=== PATIENT | female | born 1960 | race Caucasian/White ===

== ENCOUNTER 2022-08-20 06:00 | Day surgery (SDC) | payer OTHER ==
[2022-08-11 14:15] VITALS: BP 128/80
[~2022-08-20] VITALS: Ht 175.3 cm; Wt 64.5 kg
--- NOTE | ~2022-08-20 | OR ---
[facility] [address] [place], [place] [address] Draft DATE OF OPERATION: 08/20/2022 SURGEON: Deana Bundy MD PREOPERATIVE DIAGNOSIS: CIN2, positive ECC. POSTOPERATIVE DIAGNOSIS: CIN2, positive ECC. PROCEDURE: Cone biopsy with ECC. ANESTHESIA: General LMA. ESTIMATED BLOOD LOSS: 15 mL. DRAINS: None. 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 Her last one was again abnormal. Colposcopy was done which revealed CIN2 as well as positive ECC. Because of this, cone biopsy was indicated. At the time of surgery, exam under anesthesia was normal. She had a small nonstaining area on the posterior aspect of the cervix. DESCRIPTION OF PROCEDURE: The patient was prepped and draped in the dorsal lithotomy position. An open-sided speculum was placed and the anterior lip of the cervix was visualized and grasped with a single-tooth tenaculum. sutures of 0 chromic were placed at 3 and 9 o'clock using 0 chromic. The cervix was then stained with Lugol's solution. Using the knife, the cervix was circumscribed with removal of the cone with a depth of approximately 2 cm. The base of the cone was treated with cautery as well as the suction. There was continued bleeding posteriorly and a suture of 0 chromic was placed cervix posteriorly using 0 chromic with good control of this bleeding. ECC was then done with a small amount of tissue found. There was felt to be about a cm left of the endocervical canal. The base was again inspected and there was some bleeding at the PATIENT NAME: ELVIA BARBOSA OPERATIVE REPORT DATE OF : 60 REPORT #: [id number] PHYSICIAN: DEANA BUNDY MD PCP: JEREL HE PA-C REPORT IS CONFIDENTIAL AND NOT TO BE RELEASED WITHOUT AUTHORIZATION [facility] [address] [place], [place] [address] Draft anterior portion and again cautery was used with some improvement, but this required a 2nd suture of 0 chromic in this area to stop this bleeding. Following this, the base appeared completely hemostatic. The base was treated with Monsel's solution. The cone base was also packed with Gel-Foam, which had been moistened. The stay sutures were tied across as well. The cone specimen was marked at 12 o'clock. After observation, there was no evidence of any ongoing bleeding and the procedure was terminated. She was taken to the recovery room in good condition. MD FRANCY Shoemaker/SUBHASHL /[id number] Copies: ~ PATIENT NAME: ELVIA BARBOSA OPERATIVE REPORT DATE OF : 60 REPORT #: [id number] PHYSICIAN: DEANA BUNDY MD PCP: JEREL HE PA-C REPORT IS CONFIDENTIAL AND NOT TO BE RELEASED WITHOUT AUTHORIZATION
[~2022-08-20 06:00] MED LIST: ALFALFA600 MG PO; ALL DAY ALLERG1 EACH PO; AZITHROMYCIN500 MG PO; CALCIUM 500+D1 EAC2 PO; MOTRIN IB200 MG PO; MULTIVITAMINS1 EAC7 PO; OXYCODON-ACETA1 EAC2 PO; VITAMIN C500 M1 PO; VITAMIN D2000 UNI1 PO; ZYRTEC10 M3 PO
[2022-08-20 06:21] VITALS: BP 120/88
--- NOTE | 2022-08-20 08:11 | NUR ---
08/20/22 0811 Eugenia Cortes 0807-PATIENT ARRIVED TO PACU ON 6L MASK RR EVEN. PATIENTS HOB ELEVATED REACTIVE TO VERBAL STIMULI DOES OPEN EYES NOT FOLLOWING COMMANDS AND VERY DROWSY DOZES BACK TO SLEEP. SR. IVF INFUSING. NO DRAINAGE TO AKILAH PAD.
[2022-08-20 08:35] VITALS: BP 120/84
--- NOTE | 2022-08-20 08:54 | NUR ---
0835: PT ARRIVES TO DS TREATMENT ROOM VIA STRETCHER FROM PACU DROWSY. PT EASILY AROUSES WITH VERBAL STIMULATION AND IS ABLE TO DENY NAUSEA AND RATES PAIN 4/10 AND "TOLERABLE." PT PROVIDED ICED WATER AND CRACKERS AT BEDSIDE. CALL LIGHT WITHIN REACH AND ALLOWED TO REST AT THIS TIME.
[2022-08-20] MEDS ORDERED: IBU800 MG PO (09:30)
[2022-08-20 09:40] VITALS: BP 125/84
--- NOTE | 2022-08-20 09:58 | NUR ---
0940: PT RESTING IN BED AWAKE, TOLERATES WATER AND CRACKERS WITH NO NAUSEA. ICED WATER REFILLED. PT RATES PAIN 4/10 "CRAMPING" AND IS TOLERABLE. PT ENCOURAGED TO USE CALL LIGHT WITH ANY NEEDS AND/OR URGE TO VOID, CALL LIGHT WITHIN REACH.
--- NOTE | 2022-08-20 10:09 | NUR ---
PATIENT ASSISTED OOB AND TO BATHROOM. GAIT STEADY. VOID WITHOUT DIFFICULTY. GAIT STEADY BACK TO ROOM. REFILLED WATER. CALL LIGHT WITHIN REACH.
[2022-08-20 11:00] VITALS: BP 119/81
--- NOTE | 2022-08-20 11:06 | NUR ---
1100: PT USES CALL LIGHT WITH URGE TO VOID, STEADY GAIT TO BATHROOM WITH RN ASSIST. PT ABLE TO VOID 100 MLS PINK TINGED URINE WITH NO CLOTS PRESENT. BACK TO TREATMENT ROOM TO GET DRESSED.
--- NOTE | 2022-08-20 12:57 | NUR ---
PT INDICATED COMFORT WITH PROCEDURE. DENIED ANY NEEDS. PRAYED.
--- NOTE | 2022-08-20 13:15 | NUR ---
[id number]: DC INSTRUCTIONS PRESENTED VERBALLY AND WRITTEN TO PT. PAIN PRESCRIPTION PROVIDED IN DC FOLDER. PT FRIEND MILLI CALLED FOR SAFE RIDE HOME, PT DC FROM DS TREATMENT ROOM TO [facility] TO [facility].
--- NOTE | 2022-08-27 11:18 | PATH ---
[facility] [address] [place], [place] [address] Signed SPECIMEN(S): A CERVICAL CONE BIOPSY SPECIMEN(S): B ENDOCERVICAL CURETTINGS SPECIMEN SOURCE: A. CERVICAL CONE BIOPSY B. ENDOCERVICAL CURETTINGS CLINICAL HISTORY: LEMUEL 2 FINAL PATHOLOGIC DIAGNOSIS: A. Cervix, cone biopsy: - LEMUEL 3 with glandular involvement. - LEMUEL 3 is identified in the 12-3 and 3-6 o'clock quadrants. - Endocervical and ectocervical margins are free of dysplasia. B. Endocervix, curettings: - The specimen consists mostly of blood with minute, rare fragments of squamous epithelium within normal limits. - No endocervical epithelial cells are present for evaluation. COMMENT: Regarding specimen A, the specimen consists of cervical tissue in which there is transition zone present. Atypical squamous cells with a stratification pattern of LEMUEL 3 are present. There is nuclear hyperchromasia, a high N:C ratio, nuclear membrane irregularity, and mitotic activity. LEMUEL involves endocervical glands. Deep gland involvement is not seen in these sections. Invasive carcinoma is not seen. TWK:emh:C2NR MICROSCOPIC EXAMINATION: Histologic sections of all submitted blocks are examined by light microscopy. These findings, together with the gross examination, support the pathologic diagnosis. GROSS DESCRIPTION: A. The specimen, labeled and designated "Esmeot, cervical cone biopsy," is received in formalin and consists of cone-shaped cervical tissue that measures 2.2 x 1.9 x 1.7 cm. The ectocervix is pink-guillaume and smooth. Specimen is oriented with a stitch at the 12 o'clock. Cervical canal opening is inked blue and the resection margins are inked black. PATIENT NAME: ELVIA BARBOSA PATHOLOGY DATE OF : 60 REPORT #: [id number] PHYSICIAN: DINORAH PATHOLOGY PCP: JEREL HE PA-C REPORT IS CONFIDENTIAL AND NOT TO BE RELEASED WITHOUT AUTHORIZATION [facility] [address] [place], [place] [address] Signed Specimen is entirely submitted Cassette Summary: (A1-A2) 12 to 3 o'clock (A3-A4) 3 to 6 o'clock (A5-A6) 6 to 9 o'clock (A7) 9 to 12 o'clock B. The specimen, labeled and designated "Vira, endocervical curettings," is received in formalin and consists of a 1.7 x 1.9 x 0.2 cm aggregate of wang mucoid and hemorrhagic material. The specimen is filtered into a mesh bag and entirely in (B1). JS (under the direct supervision of a pathologist) The Gross Description was prepared using a voice recognition system. The report was reviewed for accuracy; however, sound-alike word errors, addition and/or deletions may occur. If there is any question about this report, please contact Client Services. PERFORMING LABORATORY: Technical component was performed by [facility], [address] [place] [id number] (CLIA# [id number]). The professional interpretation was performed by [facility], [facility], [address] [place] [address] (CLIA#: [id number]). Diagnostician: Zaheer Fortune MD Pathologist Electronically Signed 08/27/2022 Copies: ~ PATIENT NAME: ROMANCONNERELVIA MCKEON PATHOLOGY DATE OF : 60 REPORT #: [id number] PHYSICIAN: DINORAH PATHOLOGY PCP: JEREL HE PA-C REPORT IS CONFIDENTIAL AND NOT TO BE RELEASED WITHOUT AUTHORIZATION
== END 2022-08-20 11:35 | disposition home or self-care (01) ==
LOC: DS 06:00 → OPS 06:00 → DS 07:30 → OPS 07:30
PROVIDERS: ATTEND Obstetrics & Gynecology
PROC: 0UBC7ZZ Excision of Cervix, Via Natural or Artificial Opening (ICD-10-PCS; principal; 2022-08-20 07:30)
DX: D06.7 Carcinoma in situ of other parts of cervix (principal)
CPT/HCPCS: 00940; J0461; J0690; J1100; J1885; J2250; J2405; J2704; J2765; J3010; J7121